=== PATIENT | male | born 1980 | race Caucasian/White ===

== ENCOUNTER 2022-07-03 15:02 | Emergency (ER) | payer OTHER, SELFPAY ==
[2022-07-03 15:14] VITALS: BP 143/89; PULSE 89; RESP 18; TEMP 36.8; O2SAT 98
--- NOTE | 2022-07-03 15:39 | W.ED.GENAD ---
Discharge Plan Disposition Patient Disposition: Home Condition: Stable Discharge Details Clinical Impression: Laceration of hand, left [facility]: [facility] Provider: Anne Brumfield Home Meds and New Rx's Prescriptions: New cephalexin 500 mg tablet 500 mg PO BID 5 Days Qty: 10 0RF Discharge Instructions Instructions: Laceration (ED), Skin Adhesive Care (ED) Additional Instructions: Keep clean and dry as much as possible. You may wash under running soap and water after approximately 12 hours. Do not pick at or scrub the adhesive. It will start to slough off on its own in approximately 4 to 6 days. Please be seen again for any signs of infection including increased redness, red streaks, swelling drainage or any concerns. Please take the antibiotic as directed. You are given the first dose here in the department. You are also given a tetanus booster. Follow up with primary care provider in 3-5 days if needed. Return to ED sooner if any worsening or concerns. Increase oral fluids. Discharge Data Discharge Date/Time-TO BE ENTERED AT DEPARTURE: 07/03/22 16:39 Medical Decision Making 41-year-old male presents to the ER with a chief complaint of left fourth knuckle laceration which occurred just after 1 PM today. Patient reports that he hit his hand on a garage door edge. He has full range of motion noted distal sensation intact. Approximately 0.5 cm. He is does not know his last tetanus vaccination. He denies being allergic to any medications. According to my physical exam imaging is not warranted at this time. No evidence of foreign body. Full range of motion no deformity distal sensation circulation intact. At this time I do feel that wound will be well approximated with Dermabond or tissue adhesive. I will place patient on cephalexin to treat empirically for infection due to the laceration over the joint. Tdap was ordered for booster. We will clean with chlorhexidine and instruct on home care. Laceration cleaned with Chlorahexadine scrub brush And closed with Tissue adhesive, wound well approximated. Discussed home care, patient was discharged by myself. All of his questions were answered to the best my ability. Patient verbalized understanding. Nonadhesive dressing was applied loosely. Patient was given a prescription for cephalexin 500 mg p.o. twice daily x5 days and was given 2 tablets here in the department prior to his discharge. This text was generated using Nuance dictation system, please disregard any oddities of phrase or misspellings. HPI General Mode of arrival: ambulatory. Date/Time Provider Initiated Documentation: 07/03/22 15:29. Limitations to Documentation: no limitations. Information obtained by: patient, RN notes reviewed and old records reviewed. HPI Narrative: 41-year-old male presents to the ER with a chief complaint of left fourth knuckle laceration which occurred just after 1 PM today. Patient reports that he hit his hand on a garage door edge. He has full range of motion noted distal sensation intact. Approximately 0.5 cm. He is does not know his last tetanus vaccination. He denies being allergic to any medications. No other associated symptoms or concerns. Bleeding is controlled upon arrival. Related Data Home Medications Medication Instructions Recorded Confirmed cephalexin 500 mg tablet 500 mg PO BID 5 days #10 tabs 07/03/22 Previous Rx's Medication Instructions Recorded cephalexin 500 mg tablet 500 mg PO BID 5 days #10 tabs 07/03/22 Allergies Allergy/AdvReac Type Severity Reaction Status Date / Time No Known Allergies Allergy Verified 07/03/22 15:39 General Stated Complaint: Laceration KANU: 4 Review of Systems Musculoskeletal Musculoskeletal: Reports as per HPI, Denies deformity, Denies arthralgias, Denies joint swelling, Denies loss of height and Denies numbness Integumentary/Breasts Skin/Breast: Reports as per HPI and Reports wounds Neurologic Neurologic: Denies numbness PFSH All Active Problems (Updated 07/03/22 @ 16:14 by Anne Brumfield NP) Laceration of hand, left (Acute) Social History Smoking/Tobacco Use Status: Never Smoking risk assessment performed?: Yes Alcohol Intake: never Drug use: Never Substance use type: does not use Do you feel safe at home: Yes Do you feel safe in your relationship?: Yes Exam Const General: cooperative, healthy appearing, comfortable, well developed and well groomed Nutritional Appearance: average body habitus Orientation: alert, awake and oriented x3 Extrem Hand/finger images: 1. Approximately 0.5 cm laceration linear noted, bleeding controlled. Full range of motion noted. Course Vital Signs Vital signs: Vital Signs Temperature 36.8 C 07/03/22 15:14 Pulse 89 07/03/22 15:14 Respiratory Rate 18 07/03/22 15:14 Blood Pressure 143/89 H 07/03/22 15:14 Pulse Oximetry 98 07/03/22 15:14 Temperature 36.8 C 07/03/22 15:14 Temperature Source Skin 07/03/22 15:14 Pulse 89 07/03/22 15:14 Respiratory Rate 18 07/03/22 15:14 Respiratory Effort Normal, Non-Labored 07/03/22 15:19 Blood Pressure 143/89 H 07/03/22 15:14 Blood Pressure Position Sitting 07/03/22 15:14 Pulse Oximetry 98 07/03/22 15:14 Oxygen Delivery Method Room Air 07/03/22 15:14 Oxygen Flow Rate 0 07/03/22 15:14 Procedures Laceration Laceration 1: Site: hand Side (If applicable): left Size (cm): 0.5 Description: linear Depth: simple, single layer Pre-repair: irrigated extensively and deep structures intact Skin layer closed with: other (Skin adhesive)
[2022-07-03] MEDS: Cephalexin 500 MG CAP PO (15:49)
[2022-07-03] MEDS: Cephalexin 500 MG CAP, 2 CAPS/BTL PO (15:49)
== END 2022-07-03 16:39 | disposition home or self-care (01) ==
PROVIDERS: Emergency Provider Registered Nurse Emergency
DX: S61.215A Laceration without foreign body of left ring finger without damage to nail, initial encounter (principal); W22.8XXA Striking against or struck by other objects, initial encounter
CPT/HCPCS: 12001; 90471; 99283